=== PATIENT | female | born 1990 ===

== ENCOUNTER 2023-10-16 18:08 | Emergency (ER) | payer OTHER, SELFPAY ==
[2023-10-16 18:15] VITALS: BP 134/94
[2023-10-16 18:49] LABS: % Basophils 0.6 % (0-2); % Eosinophils 2.5 % (0-6); % Immature Granulocytes 0.2 % (0-0.5); % Lymphocytes 27.9 % (20.5-51.1); % Monocytes 6.8 % (1.7-9.3); Absolute Basophils 0.1 10^3/uL (0-0.2); Absolute Eosinophils 0.2 10^3/uL (0-0.7); Absolute Lymphocytes 2.7 10^3/uL (1.2-3.4); Absolute Monocytes 0.7 10^3/uL (0.1-0.6); Absolute Neutrophils 5.9 10^3/uL (1.4-6.5); Hematocrit 34.7 % (37.0-47.0); Hemoglobin 12.4 g/dL (12.0-16.0); Mean Corp Hgb Conc. 35.7 g/dL (33.0-37.0); Mean Corpuscular Hgb 32.8 pg (27.0-31.0); Mean Corpuscular Volume 91.8 fL (81.0-99.0); Mean Platelet Volume 11.8 fL (7.4-10.4); Nucleated Red Blood Cells % 0 %; Platelet Count 249 10^3/uL (130-400); Red Blood Cell Count 3.78 10^6/uL (4.20-5.40); Red Cell Dist. Width 12.1 % (11.5-14.5); White Blood Cell Count 9.6 10^3/uL (4.8-10.8)
[2023-10-16 19:28] LABS: Beta HCG Quantitative 664.91 mIU/ml
[2023-10-16 20:02] VITALS: BMI 21.1
[2023-10-16 20:13] LABS: Urine Albumin Negative (Neg - Trace); Urine Bilirubin Negative (Negative); Urine Character Clear (Clear); Urine Color Yellow; Urine Glucose Negative (Negative); Urine Ketone 2+ (Negative); Urine Leukocyte Negative (Negative); Urine Nitrite Negative (Negative); Urine Occult Blood 3+ (Negative); Urine Urobilinogen Negative (Neg - 1+)
[2023-10-16 20:25] LABS: Urine Bacteria Few (Negative); Urine White Cell 0-2 /HPF (0-5)
--- NOTE | 2023-10-16 22:22 | ED.GENMED ---
History of Present Illness
General
Chief Complaint: Vaginal Bleeding
Source: patient
Time Seen by Provider: 10/16/23 20:30
Travel History
Have you had any contact with someone who has COVID-19?: No
Do you have any symptoms of coronavirus? Fever > 100 degrees, chills, cough, shortness of breath, sore throat, loss of taste or smell, muscle aches, or headache?: No
History of Present Illness
History of Present Illness:
32-year-old female presents to the emergency room complaining of vaginal bleeding and spotting. Patient began having symptoms earlier this afternoon. She went to the bathroom and when she wiped she noted blood. She does not have significant
abdominal pain. Patient has a known positive test. Her last menstrual period was September 04. She took a home test which was positive. She had some spotting on October 07. She was seen by [employer] who evaluated her in the office.
An hCG was obtained which was 765. This test was performed about 48 hours ago. This is the patient's first .
Phy Exam
Physical Exam
Physical Exam:
General: Awake, Alert, Oriented X3. No acute distress.
Vitals: unremarkable
Head: Atraumatic
Eyes: Pupils equal, EOMI
Throat: Airway intact, no exudates
Neck: Trachea midline
Lungs: Clear and equal b/l
Heart: Regular rate, no murmurs
Abd: Soft, Nontender, No pulsatile mass
Neuro: Nonfocal
Skin: Warm, dry, no rash
Extremities: pulses equal b/l, no edema
Course
Orders/Labs/Results
Orders:
Orders
10/16/23 18:27
Type+Screen Urgent
Complete Blood Count/With Diff Urgent
HCG, Beta Quantitative [Beta HCG Quantitative] Urgent
Is this a screen?: No
10/16/23 19:05
US W Transvaginal Urgent
Reason For Exam: 5 weeks , vaginal bleeding
10/16/23 20:05
Urinalysis Reflex To Culture Urgent
Date Specimen was Collected: 10/16/23
Time Specimen was Collected: 20:01
Urine Microscopic Reflex Cult Urgent
Abnormal Lab Results
10/16/23 10/16/23
18:27 20:05
RBC 3.78 L 10^6/uL
(4.20-5.40)
Hct 34.7 L %
(37.0-47.0)
MCH 32.8 H pg
(27.0-31.0)
MPV 11.8 H fL
(7.4-10.4)
Absolute Monos (auto) 0.7 H 10^3/uL
(0.1-0.6)
Urine Ketones 2+ A
(Negative)
Ur Occult Blood Reflex 3+ A
(Negative)
Urine RBC 3-6 A /HPF
(0-2)
Urine Bacteria (Reflex) Few A
(Negative)
10/16/23 18:27
Vital Signs
Initial and Last Documented VS:
Initial Vital Signs
Temp Pulse Resp BP Pulse Ox
99 F 96 20 134/94 100
10/16/23 18:15 10/16/23 18:15 10/16/23 18:15 10/16/23 18:15 10/16/23 18:15
Last Documented Vital Signs
Temp Pulse Resp BP Pulse Ox
99 F 96 20 134/94 100
10/16/23 18:15 10/16/23 18:15 10/16/23 18:15 10/16/23 18:15 10/16/23 18:15
MDM/Problems Addressed
Differential Diagnosis Includes:
Threatened , spontaneous , ectopic
MDM/Problems Addressed:
Patient's physical exam not consistent with ectopic at least not of acute ruptured ectopic. Ultrasound shows an intrauterine sac suggestive of a gestational sac. There is no heartbeat noted. This is an indeterminate ultrasound. There is no
evidence of an ectopic on ultrasound. Patient's quant has dropped to 664 which is obviously concerning for an abnormal . Communicated with Dr. Clyde Herring is on-call for [employer]. She recommends the patient get another quant in 48
hours. I did give the patient a slip for an hCG on Wednesday. We did discuss that she could proceed to a spontaneous . She should contact [employer] if she has any questions. If she has severe pain, bleeding or any concerns she is instructed to
return to the emergency room.
*Radiology
Radiology exam reviewed: radiology read reviewed
*Critical Care Note
Total Time (30-74mins, 75-104mins- exclusive of procedures): Not Applicable
ED Attending Note
-
Portions of this chart may have been created with voice recognition software.� Occasional wrong word or��sound alike� substitutions may have occurred due to the inherent limitations of voice recognition software.
Discharge Plan
Departure
Patient Disposition: Home (Routine Discharge)
Date of Disposition: 10/16/23
Time of Disposition: 22:22
Patient with high blood pressure during this ER visit?: No
Condition: Good
Discharge Problem:
Threatened
Instructions: Threatened Miscarriage (DC)
Referrals:
Clyde Herring MD [Active] -
NONE,* [Family Provider] -
Interventions
Interventions:
*Risk Screen - Suicide Last Done: 10/16/23 20:03
*General Assessment Last Done: 10/16/23 20:03
*Neglect/Abuse Screening Last Done: 10/16/23 20:03
ED- Fall Risk Assessment Last Done: 10/16/23 20:03
*ED COVID-19 Vaccine History Last Done: 10/16/23 20:03
*Nursing Disposition Last Done: 10/16/23 22:32
ED-Female Genitourinary Assessment Last Done: 10/16/23 20:03
Discharge Date and Time
Discharge Date/Time: 10/16/23 22:32
Print Language: VENEZUELAN
== END 2023-10-16 22:32 | disposition home or self-care (01) ==
LOC: EMR 18:08
PROVIDERS: EMERGENCY PHYSICIAN Emergency Medicine
DX: O20.0 Threatened abortion (principal); Z3A.01 Less than 8 weeks gestation of pregnancy
CPT/HCPCS: 99284; 76801; 76817; 81003; 81015; 84702; 85025; 86850; 86900; 86901

== ENCOUNTER → 2023-10-18 11:54 | Outpatient (REF) | payer OTHER, SELFPAY | LOC: REG 11:54 | PROVIDERS: ATTENDING PHYSICIAN Emergency Medicine; FAMILY PHYSICIAN Obstetrics & Gynecology | DX: O20.0 Threatened abortion (principal) | CPT/HCPCS: 36415; 84702 ==

== ENCOUNTER 2023-10-24 15:47 | Emergency (ER) | payer OTHER, SELFPAY ==
[2023-10-24 15:50] VITALS: BP 138/70
[2023-10-24 17:26] VITALS: BMI 22.8
[2023-10-24 17:47] LABS: Urine Albumin Negative (Neg - Trace); Urine Bilirubin Negative (Negative); Urine Character Clear (Clear); Urine Color Straw; Urine Glucose Negative (Negative); Urine Ketone Negative (Negative); Urine Leukocyte Negative (Negative); Urine Nitrite Negative (Negative); Urine Occult Blood 2+ (Negative); Urine Specific Gravity 1.005 (<1.030); Urine Urobilinogen Negative (Neg - 1+)
[2023-10-24 18:09] LABS: Urine Bacteria Few (Negative); Urine Red Blood Cell 0-2 /HPF (0-2); Urine White Cell 0-2 /HPF (0-5)
--- NOTE | 2023-10-24 20:23 | ED.GENMED ---
History of Present Illness
General
Chief Complaint: Problems
Source: patient and family
Time Seen by Provider: 10/24/23 16:41
Travel History
Have you had any contact with someone who has COVID-19?: No
Do you have any symptoms of coronavirus? Fever > 100 degrees, chills, cough, shortness of breath, sore throat, loss of taste or smell, muscle aches, or headache?: No
History of Present Illness
History of Present Illness:
33-year-old female G1, P0 who presents for further evaluation of her bleeding and cramping. Patient has been seen in the emergency department on October 15. At that time she had a beta in the mid 600s. She had an ultrasound that did not show an
IUP. The patient was to follow-up with OB. She then had follow-up hCG and her beta was in the 700s. She was advised that it could be an ectopic or threatened miscarriage. The patient today presents with persistence of symptoms and just concerned
that she could have an ectopic. The patient denies any pain. She does notice blood when she wipes. No vomiting. No lightheadedness. No passing out
Past History
Past History
ED Past Medical History: None
Social History
Tobacco: Non-smoker
Phy Exam
Physical Exam
Physical Exam:
CONSTITUTIONAL Patient alert and oriented to person, place and time. Well-appearing. Vital signs reviewed.
HEAD atraumatic, normocephalic.
EYES eyelids normal to inspection, Extraocular muscles intact, Conjunctiva normal, Sclera normal.
NECK normal range of motion, Trachea midline, no jugular venous distention.
RESPIRATORY CHEST No respiratory distress noted, Chest expansion equal,
ABDOMEN abdomen nontender, Bowel sounds normal. No distention.
BACK normal inspection, no obvious deformities
UPPER EXTREMITY range of motion normal, Motor strength normal, no cyanosis, no edema.
LOWER EXTREMITY range of motion normal, Motor strength normal, no cyanosis, no edema.
NEURO Speech normal, No focal motor deficits, Anastasia coma scale 15, Memory normal, Cranial Nerves intact to screening exam.
SKIN skin warm, dry, and normal in color.
PSYCHIATRIC patient oriented to person place and time, Normal affect.
Course
Orders/Labs/Results
Orders:
Orders
10/24/23 15:53
US W Transvaginal Urgent
Reason For Exam: bleeding/cramping
10/24/23 17:24
Beta HCG Quantitative Urgent
Is this a screen?: No
Urinalysis Reflex To Culture Urgent
Specimen Description:
Date Specimen was Collected: 10/24/23
Time Specimen was Collected: 17:13
Urine Microscopic Reflex Cult Urgent
Abnormal Lab Results
10/24/23
17:24
Ur Occult Blood Reflex 2+ A
(Negative)
Urine Bacteria (Reflex) Few A
(Negative)
Vital Signs
Initial and Last Documented VS:
Initial Vital Signs
Temp Pulse Resp BP Pulse Ox
98.0 F 76 16 138/70 100
10/24/23 15:50 10/24/23 15:50 10/24/23 15:50 10/24/23 15:50 10/24/23 15:50
Last Documented Vital Signs
Temp Pulse Resp BP Pulse Ox
98.0 F 76 16 138/70 100
10/24/23 15:50 10/24/23 15:50 10/24/23 15:50 10/24/23 15:50 10/24/23 15:50
Information
Weeks gestation: Weeks: (7)
Location: N/A
MDM/Problems Addressed
MDM/Problems Addressed:
threatened miscarriage, IUP
*Radiology
Radiology exam reviewed: radiology read reviewed
*Pulse Oximetry
Patient hypoxic: no
*Critical Care Note
Total Time (30-74mins, 75-104mins- exclusive of procedures): Not Applicable
Data Reviewed
Review of Other/Old Records Reveals: Labs (Previous hCG reviewed. Previous blood bank reviewed showing that she has a positive serotype)
Source: patient and family
Prescriptions/Medications Considered But Not Given:
Consider RhoGAM but she has a positive
Patient Management
Discussion with other providers: Wrecker Driver (Case discussed with OB who will ensure outpatient follow-up.)
Escalation/DeEscalation of care consider admission/obs:
Sort of odd that her beta is not progressing as expected but her ultrasound did progress. Could still be a failed but will need follow-up with OB
ED Attending Note
-
Portions of this chart may have been created with voice recognition software.� Occasional wrong word or��sound alike� substitutions may have occurred due to the inherent limitations of voice recognition software.
Discharge Plan
Departure
Patient Disposition: Home (Routine Discharge)
Date of Disposition: 10/24/23
Time of Disposition: 20:23
Patient with high blood pressure during this ER visit?: No
Discharge Problem:
Threatened
Instructions: Threatened Miscarriage (DC)
Referrals:
NONE,* [Family Provider] -
Activity Restrictions/Additional Instructions:
Please see your police liaison in the next 3 days for follow-up and reevaluation. Repeat ultrasound and repeat labs will be important to follow your along. Return for increased bleeding or cramping. Return for passing out episode or any
other concerns.
Interventions
Interventions:
*Risk Screen - Suicide Last Done: 10/24/23 17:20
*General Assessment Last Done: 10/24/23 15:50
*Neglect/Abuse Screening Last Done: 10/24/23 17:20
ED- Fall Risk Assessment Last Done: 10/24/23 17:20
*ED COVID-19 Vaccine History Last Done: 10/24/23 17:22
*Nursing Disposition Last Done: 10/24/23 21:17
ED-Female Genitourinary Assessment Last Done: 10/24/23 17:21
Discharge Date and Time
Discharge Date/Time: 10/24/23 21:18
Print Language: TUNISIAN
== END 2023-10-24 21:18 | disposition home or self-care (01) ==
LOC: EMR 15:47
PROVIDERS: EMERGENCY PHYSICIAN Emergency Medicine
DX: O20.0 Threatened abortion (principal); Z3A.01 Less than 8 weeks gestation of pregnancy
CPT/HCPCS: 99284; 76801; 76817; 81003; 81015; 84702

== ENCOUNTER → 2023-11-08 09:52 | Outpatient (REF) | payer OTHER, SELFPAY | LOC: RAD 09:52 | PROVIDERS: ATTENDING PHYSICIAN Nurse Practitioner Family; FAMILY PHYSICIAN Family Medicine | DX: Z34.90 Encounter for supervision of normal pregnancy, unspecified, unspecified trimester (principal) | CPT/HCPCS: 76830; 76856 ==

== ENCOUNTER → 2023-12-07 16:23 | Outpatient (REF) | payer OTHER, SELFPAY | LOC: RAD 16:23 | PROVIDERS: ATTENDING PHYSICIAN Obstetrics & Gynecology; FAMILY PHYSICIAN Internal Medicine | DX: R93.89 Abnormal findings on diagnostic imaging of other specified body structures (principal) | CPT/HCPCS: 76830; 76856 ==

== ENCOUNTER 2024-02-24 10:14 | Emergency (ER) | payer OTHER, SELFPAY ==
[2024-02-24 10:30] VITALS: BP 113/76
[2024-02-24 11:02] LABS: % Basophils 0.9 % (0-2); % Eosinophils 4.7 % (0-6); % Immature Granulocytes 0.2 % (0-0.5); % Lymphocytes 32.7 % (20.5-51.1); % Neutrophils 53.5 % (42.2-75.2); Absolute Basophils 0.1 10^3/uL (0-0.2); Absolute Eosinophils 0.3 10^3/uL (0-0.7); Absolute Lymphocytes 1.8 10^3/uL (1.2-3.4); Absolute Monocytes 0.4 10^3/uL (0.1-0.6); Absolute Neutrophils 2.9 10^3/uL (1.4-6.5); Hematocrit 34.6 % (37.0-47.0); Hemoglobin 12.2 g/dL (12.0-16.0); Mean Corp Hgb Conc. 35.3 g/dL (33.0-37.0); Mean Corpuscular Hgb 32.7 pg (27.0-31.0); Mean Corpuscular Volume 92.8 fL (81.0-99.0); Mean Platelet Volume 11.7 fL (7.4-10.4); Nucleated Red Blood Cells % 0 %; Platelet Count 228 10^3/uL (130-400); Red Blood Cell Count 3.73 10^6/uL (4.20-5.40); Red Cell Dist. Width 12.3 % (11.5-14.5); White Blood Cell Count 5.4 10^3/uL (4.8-10.8)
[2024-02-24 11:12] LABS: ALT (SGPT) 16 U/L (0-35); AST (SGOT) 22 U/L (14-36); Albumin 4.5 g/dl (3.5-5.0); Alkaline Phosphatase 44 U/L (38-126); Blood Urea Nitrogen 10 mg/dl (7-17); Calcium 9.2 mg/dl (8.4-10.2); Carbon Dioxide 26 mmol/L (22-30); Chloride 106 mmol/L (98-107); Glucose 93 mg/dl (70-99); Potassium 4.2 mmol/L (3.5-5.1); Sodium 141 mmol/L (135-145); Total Bilirubin 0.5 mg/dl (0.2-1.3); Total Protein 6.9 g/dl (6.3-8.2); eGFR > 60.00
--- NOTE | 2024-02-24 11:14 | ED.GENMED ---
History of Present Illness
General
Chief Complaint: Problems
Source: patient
Exam Limitations: none
Time Seen by Provider: 02/24/24 11:12
History of Present Illness
History of Present Illness:
See MDM
Past History
Past History
ED Past Medical History: None
ED Past Surgical History: None
Social History
Tobacco: Non-smoker
Phy Exam
Physical Exam
Physical Exam:
See MDM
Course
Orders/Labs/Results
Orders:
Orders
02/24/24 10:32
US W Transvaginal Urgent
Comment: 7.5 weeks , r/o ectopic
Reason For Exam: cramping, spotting, slow rising HCG
02/24/24 10:38
Beta HCG Quantitative Urgent
Is this a screen?: No
Complete Blood Count/With Diff Urgent
Comprehensive Metabolic Panel Urgent
Progesterone Urgent
Comment: ADD ON
02/24/24 11:38
Add On- LAB Urgent
Tests Added?: progesterone
Abnormal Lab Results
02/24/24
10:38
RBC 3.73 L 10^6/uL
(4.20-5.40)
Hct 34.6 L %
(37.0-47.0)
MCH 32.7 H pg
(27.0-31.0)
MPV 11.7 H fL
(7.4-10.4)
Creatinine 0.5 L mg/dL
(0.6-1.0)
02/24/24 10:38
02/24/24 10:38
Vital Signs
Initial and Last Documented VS:
Initial Vital Signs
Temp Pulse Resp BP Pulse Ox
98.7 F 60 16 113/76 97
02/24/24 10:30 02/24/24 10:30 02/24/24 10:30 02/24/24 10:30 02/24/24 10:30
Last Documented Vital Signs
Temp Pulse Resp BP Pulse Ox
98.7 F 72 18 138/86 100
02/24/24 10:30 02/24/24 12:30 02/24/24 12:30 02/24/24 12:30 02/24/24 12:30
Information
Weeks gestation: Weeks: (5)
Location: Location: (uterus)
MDM/Problems Addressed
Differential Diagnosis Includes:
HPI and MDM Narrative:
33-year-old female G2, P0 presenting for abd cramping and low rising HCG. Pt states she was sent in to rule out ectopic. She has been followed as an outpatient and her levels have been rising. However, they have remained around thousand
for the past few days. Given her ongoing symptoms, she was sent in to rule out ectopic knowing that this is likely nonviable
Physical exam
General: Well appearing and non-toxic
HEENT: protecting airway
Neck: appears supple
CV: No evidence of cyanosis
Resp: No accessory muscle use
Abd: Non-distended
Extremities: No deformities
Neuro: alert
Psych: Normal affect
Skin: Intact
Problems Addressed including Acute and Chronic Conditions affecting care:
1. First trimester abdominal cramping
Acuity: acute
Prognosis: stable
Details: Given history, patient was sent in to rule out ectopic . Will obtain beta-hCG and ultrasound
Updates
Ultrasound shows gestational sac in the uterus. Case discussed with OB. Patient given a prescription to have her beta hCG rechecked in 2 days and prescription to have transvaginal ultrasound in 1 week
OB recommending no sexual intercourse or sexual activity until the follow-up is performed. This was relayed to both patient and .
Differential Diagnosis (but not limited to): Threatened miscarriage, ectopic
Testing considered: Urinalysis
Drug therapy (if applicable): OTC meds, please see d/c instruction regarding Rx drugs
Amount and/or Complexity of Data Reviewed
Clinical info obtained from: Patient
External data reviewed: N/A
Labs I independently reviewed (but not limited to): Beta-hCG
Radiology: Ultrasound report reviewed
Pulse Ox: not hypoxic
EKG independently reviewed: N/A
Case Assistant: N/A
Critical Care: N/A
Risk of Complication:
Social Determinants of health: Good social support
Discussed with other providers: OB
Escalation of Care includes Admit/Obs: After being observed in the Emergency Department, pt stable for discharge.
Occasional wrong word or 'sound a like' substitutions may have occurred due to the inherent limitations of voice recognition software. Read the chart carefully and recognize, using context, where substitutions have occurred.
*Critical Care Note
Total Time (30-74mins, 75-104mins- exclusive of procedures): Not Applicable
ED Attending Note
-
Portions of this chart may have been created with voice recognition software.� Occasional wrong word or��sound alike� substitutions may have occurred due to the inherent limitations of voice recognition software.
Discharge Plan
Departure
Patient Disposition: Home (Routine Discharge)
Date of Disposition: 02/24/24
Time of Disposition: 13:20
Patient with high blood pressure during this ER visit?: No
Discharge Problem:
Threatened miscarriage
Instructions: Threatened Miscarriage (DC)
Referrals:
Nishi Plaza MD [Family Provider] -
Activity Restrictions/Additional Instructions:
Please refer to the [address] David wants you return to the emergency department on Wednesday02/26/24. Please go to the emergency department desk to have your beta hCG quantitative levels redrawn.
In addition, Dr. David wants you have a transvaginal ultrasound 7 days from now on 03/02/24.
Please return for worsening symptoms.
Interventions
Interventions:
*Risk Screen - Suicide Last Done: 02/24/24 12:30
*General Assessment Last Done: 02/24/24 12:30
*Neglect/Abuse Screening Last Done: 02/24/24 12:30
ED-Female Genitourinary Assessment Last Done: 02/24/24 12:32
Discharge Date and Time
Print Language: KINYARWANDA
[2024-02-24 12:30] VITALS: BP 138/86; BMI 22.1
[2024-02-24 13:10] LABS: Progesterone 8.37 ng/ml
== END 2024-02-24 14:19 | disposition home or self-care (01) ==
LOC: EMR 10:14
PROVIDERS: EMERGENCY PHYSICIAN Student in an Organized Health Care Education/Training Program; FAMILY PHYSICIAN Internal Medicine
DX: O20.0 Threatened abortion (principal); Z3A.01 Less than 8 weeks gestation of pregnancy
CPT/HCPCS: 99284; 76801; 76817; 80053; 84144; 84702; 85025

== ENCOUNTER 2024-02-27 03:00 | Observation (INO) | payer OTHER, SELFPAY ==
[2024-02-26 21:55] VITALS: BP 144/97
[2024-02-26 22:35] VITALS: BMI 23.2
--- NOTE | 2024-02-26 22:39 | EDRN ---
Pt says she has a threatened miscarriage and her doctor is concerned she has an ectopic so pt sent to ED for repeat US. Pt has yellow, light brown spotting. Pt has intermittent cramping. No fever/chills, n/v. Pt has headache. A1
[2024-02-26 22:43] LABS: % Basophils 0.6 % (0-2); % Immature Granulocytes 0.2 % (0-0.5); % Lymphocytes 31.3 % (20.5-51.1); % Monocytes 8.1 % (1.7-9.3); % Neutrophils 56.8 % (42.2-75.2); Absolute Basophils 0.1 10^3/uL (0-0.2); Absolute Eosinophils 0.3 10^3/uL (0-0.7); Absolute Lymphocytes 3.1 10^3/uL (1.2-3.4); Absolute Monocytes 0.8 10^3/uL (0.1-0.6); Absolute Neutrophils 5.5 10^3/uL (1.4-6.5); Hematocrit 33.1 % (37.0-47.0); Hemoglobin 11.9 g/dL (12.0-16.0); Mean Corpuscular Hgb 32.7 pg (27.0-31.0); Mean Corpuscular Volume 90.9 fL (81.0-99.0); Mean Platelet Volume 11.4 fL (7.4-10.4); Nucleated Red Blood Cells % 0 %; Platelet Count 229 10^3/uL (130-400); Red Blood Cell Count 3.64 10^6/uL (4.20-5.40); Red Cell Dist. Width 12.1 % (11.5-14.5); White Blood Cell Count 9.7 10^3/uL (4.8-10.8)
--- NOTE | 2024-02-26 23:02 | ED.GENMED ---
History of Present Illness
General
Chief Complaint: Problems
Source: patient
Exam Limitations: none
Time Seen by Provider: 02/26/24 22:56
History of Present Illness
History of Present Illness:
See MDM
Past History
Past History
ED Past Medical History: None
ED Past Surgical History: None
Social History
Tobacco: Non-smoker
Phy Exam
Physical Exam
Physical Exam:
See MDM
Course
Orders/Labs/Results
Orders:
Orders
02/26/24 22:30
US W Transvaginal Urgent
Comment:
Reason For Exam: RISING HCG LEVELS ABNL; R/O ECTOPIC
02/26/24 22:38
Beta HCG Quantitative Urgent
Is this a screen?: No
Comment: RISING HCG LEVELS NOT APPROP; CONCERN FOR ECTOPIC
Complete Blood Count/With Diff Urgent
Comprehensive Metabolic Panel Urgent
Abnormal Lab Results
02/26/24
22:38
RBC 3.64 L 10^6/uL
(4.20-5.40)
Hgb 11.9 L g/dL
(12.0-16.0)
Hct 33.1 L %
(37.0-47.0)
MCH 32.7 H pg
(27.0-31.0)
MPV 11.4 H fL
(7.4-10.4)
Absolute Monos (auto) 0.8 H 10^3/uL
(0.1-0.6)
02/26/24 22:38
02/26/24 22:38
Vital Signs
Initial and Last Documented VS:
Initial Vital Signs
Temp Pulse Resp BP Pulse Ox
98.9 F 108 22 144/97 100
02/26/24 21:55 02/26/24 21:55 02/26/24 21:55 02/26/24 21:55 02/26/24 21:55
Last Documented Vital Signs
Temp Pulse Resp BP Pulse Ox
98.9 F 73 18 97/66 100
02/26/24 21:55 02/27/24 00:41 02/27/24 00:41 02/27/24 00:41 02/26/24 21:55
Information
Weeks gestation: Weeks: (5)
Location: Location: (Uterus)
MDM/Problems Addressed
Differential Diagnosis Includes:
HPI and MDM Narrative:
33-year-old female presenting to rule out ectopic . She has been followed by OB with slow rising hCG. Recent ultrasound shows gestational sac but no obvious embryo. She complains of mild vaginal spotting
Physical exam
General: Well appearing and non-toxic
HEENT: protecting airway
Neck: appears supple
CV: No evidence of cyanosis
Resp: No accessory muscle use
Abd: Non-distended
Extremities: No deformities
Neuro: alert
Psych: Normal affect
Skin: Intact
Problems Addressed including Acute and Chronic Conditions affecting care:
1. First trimester bleeding
Acuity: acute
Prognosis: stable
Details: Patient acknowledges that she is likely having miscarriage. Will obtain ultrasound to rule out ectopic
Updates
Ultrasound again cannot completely rule out ectopic. Case discussed with OB who will evaluate patient and discuss admission for D&E
Differential Diagnosis (but not limited to): Third miscarriage, ectopic
Testing considered: Blood type but this was already evaluated and recent ER visit
Drug therapy (if applicable): OTC meds, please see d/c instruction regarding Rx drugs
Amount and/or Complexity of Data Reviewed
Clinical info obtained from: Patient
External data reviewed: N/A
Labs I independently reviewed (but not limited to): Beta quant
Radiology: Ultrasound report reviewed
Pulse Ox: not hypoxic
EKG independently reviewed: N/A
Municipal Firefighter: N/A
Critical Care: N/A
Risk of Complication:
Social Determinants of health: Good social support
Discussed with other providers: OB
Escalation of Care includes Admit/Obs: Given the abnormal , will admit for possible D&E
Occasional wrong word or 'sound a like' substitutions may have occurred due to the inherent limitations of voice recognition software. Read the chart carefully and recognize, using context, where substitutions have occurred.
*Critical Care Note
Total Time (30-74mins, 75-104mins- exclusive of procedures): Not Applicable
ED Attending Note
-
Portions of this chart may have been created with voice recognition software.� Occasional wrong word or��sound alike� substitutions may have occurred due to the inherent limitations of voice recognition software.
Discharge Plan
Departure
Patient Disposition: Admit
Date of Disposition: 02/27/24
Time of Disposition: 01:46
Presentation/result/management discussed w/ accepting MD/DO: Hospitalist
Discharge Problem:
Abnormal in first trimester
Prescriptions:
No Action
valacyclovir [Valtrex] 500 mg Tablet
500 mg PO BIDPRN PRN (Reason: herpes outbreak)
folic acid
1 tab PO DAILY
Patient Comments:
pt does not know dosage
Referrals:
Nishi Meza MD [Family Provider] -
Interventions
Interventions:
*Risk Screen - Suicide Last Done: 02/26/24 22:35
*General Assessment Last Done: 02/26/24 22:35
*Neglect/Abuse Screening Last Done: 02/26/24 22:35
ED- Fall Risk Assessment Last Done: 02/26/24 22:42
*ED COVID-19 Vaccine History Last Done: 02/26/24 22:35
ED-Female Genitourinary Assessment Last Done: 02/26/24 22:42
Discharge Date and Time
Print Language: ARABIC
[2024-02-26 23:07] LABS: ALT (SGPT) 19 U/L (0-35); AST (SGOT) 27 U/L (14-36); Albumin 4.9 g/dl (3.5-5.0); Alkaline Phosphatase 53 U/L (38-126); Blood Urea Nitrogen 11 mg/dl (7-17); Calcium 9.4 mg/dl (8.4-10.2); Carbon Dioxide 23 mmol/L (22-30); Chloride 100 mmol/L (98-107); Estimated Creatinine Clearance 121 ml/min; Glucose 91 mg/dl (70-99); Sodium 136 mmol/L (135-145); Total Bilirubin 0.4 mg/dl (0.2-1.3); Total Protein 7.3 g/dl (6.3-8.2); eGFR > 60.00
[2024-02-27] VITALS (10 sets, daily range): BP systolic 97–124; BP diastolic 55–80; BMI 21.6
--- NOTE | 2024-02-27 02:54 | W.PN.ADMIT ---
Progress Note - Admit
Progress Note - Admit
33-year-old female with LMP 01/14/2024 presents to emergency room at my request for evaluation. Patient had been seen as an outpatient in my office and followed for early evaluation. She has history of a previous spontaneous
miscarriage approximately 7 weeks. She had serial hCGs:
02/15-363
02/17-697
02/21 1021
02/23 1049.
02/25 1273.
02/26 1369.
She had an evaluation at the emergency room on 02/23 after having abnormal rising hCG as an outpatient. The patient denied any abdominal or pelvic pain. She reports a yellowish-brown scant discharge but no bleeding. There was concern because of
the abnormal rising hCG that this may represent an ectopic . She had a pelvic ultrasound on 02/23 demonstrating what was felt to be an intrauterine gestational sac measuring 5 wks. No yolk sac or IUP seen. Anembryonic listed as
possible consideration.
The patient had arrangements to have a follow-up hCG on 02/25 and this was reported at 1273. I contacted the patient and requested to have her come to the emergency room for additional imaging and follow-up because of concern of a possible ectopic
. I met with her and her in the emergency room this evening. The patient was not able to come until later evening because of work schedule. She denies any abdominal or pelvic pain or bleeding. Reports a headache.
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
PAST SURGICAL HISTORY: wisdom tooth extraction
NKDA
MEDICATIONS: valacyclovir as needed and folic acid
SOCIAL HISTORY: , denies tobacco, vaping,or recreational drug use; drinks glass of wine 3-4 times a weekwhen she is not
FAMILY HISTORY: maternal grandfather-throat cancer; maternal grandmother- skin cancer
ROS: headache+, neg abdominal pain or bleeding
Physical exam vitals are stable afebrile
Heart regular
Lungs clear
Abdomen soft nondistended nontender
Pelvic exam was deferred
Labs:
H/H11.9/33.1 platelet 229
Electrolytes normal
hCG as above
Pelvic ultrasound read by Radha: Small anechoic focus within the endometrium with suggestion of trophoblastic reaction. May signify small gestational sac of early IUP. No yolk sac or pole. Ectopic cannot be excluded. Questionable
cervical polyp.
IMPRESSION:
1. of unknown location
2.Abnormal rising hCG
PLAN:
Findings are consistent with an abnormal given the abnormal rise of hCG. hCG should be well above this range which is concerning for an ectopic . The structure visualized in the endometrial cavity could be an early gestational
sac. However, this also could represent a pseudo- gestational sac which can be associated with ectopic . This was discussed with the patient and her . Patient understands that this is not a normal progressing . It is
recommended to proceed with dilation and evacuation procedure to determine if chorionic villi are present which would confirm IUP. She is aware that if pathology fails to demonstrate chorionic villi, there is concern about possible ectopic
and additional treatment possibly with methotrexate may be indicated at that time. It is a holiday weekend and I likely will not have pathology results available immediately. Therefore the patient has been counseled that very close
follow-up will be needed after the procedure to monitor hCGs for appropriate fall and level. She is aware that this is not a viable . She was counseled about the procedure risks and complications which include but are not limited to
infection, bleeding, injury to the uterus other surrounding tissue organs or structures. Possibility of incomplete evacuation reviewed although given very small size this is unlikely. She was counseled in the event of a complication this could
necessitate additional procedures blood transfusion consent with its inherent risks have been discussed questions were answered to her satisfaction and informed consent has been obtained. Will plan procedure for later this morning.
Time 45 min
--- NOTE | 2024-02-27 04:46 | PTCARENOTE ---
Pt. arrived from ED at 0400. Pt. complains of headache, but otherwise denies pain. AAO x3, surgical pre-op procedure explained, assessment ongoing.
--- NOTE | 2024-02-27 11:49 | CM ---
Reviewed the chart notes and spoke with the patient and her spouse at the bedside. The patient is admitted under observational status. The observation letter was provided and explained. The patient had no questions with regards to the letter.
The patient resides with her spouse in a first floor apartment with 10 steps to enter. The patient reports no DME/VN/SNF in the past. The patient confirmed her pharmacy of choice is [facility]. CM continues to be available to patient/family and is
monitoring medical plan for needs at discharge.
Plan: Discharge to home when medically stable.
[2024-02-27] MEDS: LR 1000 IV (13:54)
--- NOTE | 2024-02-27 15:39 | PTCARENOTE ---
1535: Patient arrived back to 2S post surgery. Full head to toe assessment completed. IVF running per order. Patient on RA with SpO2 greater than 92%. Call [place] within reach and bed in lowest position. Family at bedside.
== END 2024-02-27 17:35 | disposition home or self-care (01) ==
LOC: 2 SOUTH 03:00
PROVIDERS: Physician Assistant; ADMITTING PHYSICIAN Obstetrics & Gynecology; EMERGENCY PHYSICIAN Student in an Organized Health Care Education/Training Program; FAMILY PHYSICIAN Family Medicine
DX: O03.4 Incomplete spontaneous abortion without complication (principal); O98.311 Other infections with a predominantly sexual mode of transmission complicating pregnancy, first trimester; A60.00 Herpesviral infection of urogenital system, unspecified; Z3A.01 Less than 8 weeks gestation of pregnancy; A63.0 Anogenital (venereal) warts; O98.519 Other viral diseases complicating pregnancy, unspecified trimester; N84.1 Polyp of cervix uteri; N83.11 Corpus luteum cyst of right ovary
CPT/HCPCS: 59820; 88305; 36415; 76801; 76817; 80053; 84702; 85025; 86850; 86900; 86901; 99285; G0378

== ENCOUNTER → 2024-02-28 08:56 | Outpatient (REF) | payer OTHER, SELFPAY ==
[2024-02-28 09:43] LABS: Beta HCG Quantitative 464.86 mIU/ml
== END ==
LOC: REG 08:56
PROVIDERS: ATTENDING PHYSICIAN Obstetrics & Gynecology
DX: O02.81 Inappropriate change in quantitative human chorionic gonadotropin (hCG) in early pregnancy (principal)
CPT/HCPCS: 84702

== ENCOUNTER → 2024-03-01 12:23 | Outpatient (REF) | payer OTHER, SELFPAY ==
[2024-03-01 13:19] LABS: HCG, Serum Qualitative Screen Positive
[2024-03-01 15:21] LABS: Beta HCG Quantitative 110.95 mIU/ml
== END ==
LOC: REG 12:23
PROVIDERS: ATTENDING PHYSICIAN Obstetrics & Gynecology; FAMILY PHYSICIAN Family Medicine
DX: O02.81 Inappropriate change in quantitative human chorionic gonadotropin (hCG) in early pregnancy (principal)
CPT/HCPCS: 36415; 84702; 84703

== ENCOUNTER → 2024-12-08 10:25 | Outpatient (REF) | payer OTHER, SELFPAY | LOC: MRI 10:25 | PROVIDERS: ATTENDING PHYSICIAN Physician Assistant; FAMILY PHYSICIAN Family Medicine | DX: E22.1 Hyperprolactinemia (principal) | CPT/HCPCS: 70553; A9575 ==

== ENCOUNTER → 2025-05-02 14:10 | Outpatient (REF) | payer OTHER, SELFPAY | LOC: RAD 14:10 | PROVIDERS: ATTENDING PHYSICIAN Obstetrics & Gynecology; FAMILY PHYSICIAN Family Medicine | DX: N92.6 Irregular menstruation, unspecified (principal) | CPT/HCPCS: 76830; 76856 ==